=== PATIENT | female | born 1955 | race Caucasian/White ===

== ENCOUNTER 2017-01-10 10:24 | Emergency (ER) | payer OTHER, BC ==
[2017-01-10] MEDS ORDERED: OXYCODONE-ACETAMINOPHEN 5-325 MG TABLET PO ONE (10:43)
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
[2017-01-10 13:08] VITALS: BP 112/71
== END 2017-01-10 13:22 | disposition short-term general hospital (02) ==
LOC: ER 10:24
DX: S06.349A Traumatic hemorrhage of right cerebrum with loss of consciousness of unspecified duration, initial encounter (principal); M54.9 Dorsalgia, unspecified; V89.2XXA Person injured in unspecified motor-vehicle accident, traffic, initial encounter; Z88.6 Allergy status to analgesic agent
CPT/HCPCS: 70450; 71260; 72125; 74177; 99285